=== PATIENT | male | born 1985 | race African-American/Black ===

== ENCOUNTER 2016-09-15 20:54 | Inpatient (IN) ==
[2016-09-15] MEDS ORDERED: SODIUM CHLORIDE 0.9% 1,000 ML IV STA (22:45)
[2016-09-15] MEDS ORDERED: cefTRIAXone 1,000 MG in SODIUM CHLORIDE 0.9% 100 ML IV STA (22:45)
[2016-09-15] MEDS ORDERED: FLUCONAZOLE INJ 200 MG in PREMIX 1 EACH IV ONE (22:45)
[2016-09-15] MEDS ORDERED: SODIUM CHLORIDE 0.9% 100 ML IV ONE (22:57)
[2016-09-15] MEDS ORDERED: cefTRIAXone 1,000 MG VIAL ONE (22:57)
[2016-09-15 23:25] LABS: Hematocrit 34.3 VOL% (42.0-52.0); Immature Granulocytes % 0.2 %; Immature Granulocytes Absolute 0.01 #; Lymphocytes # 0.6 10*3/uL (1.4-4.0); Lymphocytes % 12.5 % (21.2-54.2); Mean Corpuscular HGB Conc 32.1 GM/DL (32-36); Mean Corpuscular Hemoglobin 29 PG (27-34); Mean Corpuscular Volume 89.1 FL (87-102); Mean Platelet Volume 12.8 FL (9.6-12.0); Monocytes # 0.6 10*3/uL (0.11-0.8); Monocytes % 10.9 % (1.7-12.7); Neutrophils # 3.8 10*3/uL (1.4-7.4); Neutrophils % 76.4 % (38.7-73.9); Red Blood Count 3.85 MC/CUMM (3.8-5.5); Red Cell Distribution Width 13.4 % (9.3-17.3)
[2016-09-15 23:33] LABS: Platelet Count 52 T/CUMM (130-400)
[2016-09-15 23:43] LABS: Albumin 3.3 G/DL (3.4-5.0); Bilirubin,Total 0.6 MG/DL (0.2-1.0); Calcium 8.7 MG/DL (8.5-10.1); Osmolality,Calculated 280.1 MOS/KG (273-304); Potassium 3.4 MMOL/L (3.5-5.1); Total Protein 7.6 G/DL (6.4-8.3)
[2016-09-15 23:57] LABS: Amorphous Crystals,Urine Occasional /HPF (Few); Apearance,Urine CLEAR (Clear); Bilirubin,Urine Negative (Negative); Blood, Urine Negative (Negative); Glucose,Urine (UA) 50 mg/dL (Negative); Ketones,Urine Negative (Negative); Mucus,Urine Occasional /LPF (Occasional); Nitrite,Urine Negative (Negative); Protein,Urine 30 MG/DL; RBC,Urine <1 /HPF (0-4); Urine Color Yellow (Yellow); Urine Specific Gravity 1.018 (1.001-1.035); WBC,Urine 1 /HPF (0-6)
--- NOTE | 2016-09-16 00:26 | Emergency Department Note ---
Andi Stewart Brittany, am scribing for, and in the presence of, Dakota Gandhi MD 22:54. Oksana Stewart Charles R, MD, personally performed the services described in this documentation, ascribed by Gabriela Escamilla in my presence, and it is both accurate and complete . Arrival - Arrival Chief Complaint: Non-Specific Stated Complaint: THROAT PROBLEMS/ECT ED Nursing Triage Note: C/O SORE THROAT WITH ONSET 4 DAYS AGO. PT STATES HE HASNT BEEN ABLE TO EAT ANYTHING Mode of Arrival: Ambulatory Limitations: No Limitations Source: Patient Time Seen by Provider: 09/15/16 22:11 - History of Present Illness HPI Narrative: This is a 30 y/o black male, who presents to the ED with c/o sore throat which started 4 days ago. He states he has lost weight over "a while". He states he can feel a fever starting. He notes nausea, dysphagia and dysphonia. He denies any risky sexual behavior or any IV drug use. Pt has no other complaints/pain in the ED at this time. Pt denies a PMHx. Pt denies a surgical hx. Pt denies a family medical Hx. Pt denies a social Hx. Onset (ago): day(s) (Started 4 days ago) Consistency: constant Severity: moderate Allergies/Adverse Reactions: Allergies Allergy/AdvReac Type Severity Reaction Status Date / Time No Known Allergies Allergy Verified 08/23/14 14:52 Home Medications: Home Medications Medication Instructions Recorded Confirmed Type Phenazopyridine HCl [Pyridium] 200 mg PO TID PRN #20 tablet 04/12/16 Rx Sulfameth/Trimeth 800-160 Tab 1 tablet PO BID #20 tablet 04/12/16 Rx [Bactrim Ds Tab] Review of System - Review of System 12 point system: reviewed and no additional remarkable complaints except as stated - Review of System Constitutional: Present: fever, weight loss Head/Ears/Nose/Throat: Present: sore throat, other (Dysphonia and dysphagia) Gastrointestinal: Present: nausea Medical,Surgical,& Family Hx - Medical History Cardio: No history of: Hypertension Respiratory: No history of: Pulmonary Embolism - Surgical History Orthopedic Surgeries: Patient denies;: Total Knee Replacement - Social History Smoking Status: Current every day smoker Frequency of Alcohol Use: None Type of Drug Use: None Exam Vital Signs: Vital Signs Temperature 100.5 F H 09/15/16 21:46 Pulse Rate 114 H 09/15/16 21:46 Respiratory Rate 18 09/15/16 21:46 Blood Pressure 101/67 09/15/16 21:46 O2 Sat by Pulse Oximetry 98 09/15/16 21:11 - General General appearance: alert, in no apparent distress, cachectic (Emaciated) - Head Head exam: Present: atraumatic, normocephalic, normal inspection - Eye Eye exam: Present: normal appearance, PERRL, EOMI, other (Temporal wasting ). Absent: scleral icterus, conjunctival injection, nystagmus, miosis, mydriasis - ENT ENT exam: Present: normal oropharynx, mucous membranes moist, TM's normal bilaterally, normal external ear exam, other (Severe case of oral thrush, dysphonia, dysphagia, unable to view the ulvua. ) - Neck Neck exam: Present: trachea midline, other (Shotty lymphnodes). Absent: tenderness, meningismus, lymphadenopathy, thyromegaly - Chest Chest inspection: Present: normal inspection, symmetric chest wall rise. Absent : tenderness, rash, abscess - Respiratory Respiratory exam: Present: rhonchi (Bilateral Rhonci). Absent: rales, respiratory distress, stridor, wheezes - Cardiovascular Cardiovascular exam: Present: normal rhythm, tachycardia, normal heart sounds. Absent: murmur, rubs, gallop, clicks - Abdominal Exam Abdominal exam: Present: soft, normal bowel sounds. Absent: distention, tenderness, guarding, rebound, rigidity - Rectal Exam Rectal exam: Present: deferred - Extremities Exam Extremities exam: Present: normal inspection, full ROM, normal capillary refill. Absent: tenderness, pedal edema - Back Exam Back exam: Present: normal inspection, full ROM. Absent: tenderness, muscle spasm, rashes - Neurological Exam Neurological exam: Present: alert, oriented X3, CN II-XII intact. Absent: motor sensory deficit - Psychiatric Psychiatric exam: Present: normal affect, normal mood. Absent: depressed, agitated, anxious, flat affect - Skin Skin exam: Present: warm, dry, intact, normal color. Absent: rash, cyanosis, diaphoresis, erythema, pallor, mottled - Other Other exam information: Dystonia Course - Consultations Consultation #1: Hospitalist will admit patient Time: 00:24 Results - Labs CBC & BMP: 09/15/16 Unknown 09/15/16 23:03 Lab Results: I have reviewed the patients labs Labs: Laboratory Tests 09/15/16 Unknown WBC 5.0 RBC 3.85 Hgb 11.0 L Hct 34.3 L MCV 89.1 MCH 29 MCHC 32.1 RDW 13.4 Plt Count 52 L MPV 12.8 H Neut % (Auto) 76.4 H Lymph % (Auto) 12.5 L [place] % (Auto) 10.9 Eos % (Auto) 0.0 Baso % (Auto) 0.0 Neut # (Auto) 3.8 Lymph # (Auto) 0.6 L [place] # (Auto) 0.6 Eos # (Auto) 0.0 Baso # (Auto) 0.0 Total Counted Pending Immature Gran % 0.2 Nucleated RBC % 0.0 Immature Gran # 0.01 Nucleated RBCs # 0.00 ESR Westergren Pending Microbiology 09/15/16 23:03 Throat Group A Streptococcus Rapid Screen - Final Negative for Grp A Strep Ag Critical Care Time Critical Care Time: Yes Total Critical Care Time: 60 Disposition Clinical Impression: Thrush of mouth and esophagus, Thrombocytopenia, Suspect immune deficiency, Fever, Dysphagia, Weight loss Case discussed with: patient Disposition: Still a Patient Condition: Guarded Time of Disposition: 00:25
[2016-09-16 00:37] LABS: Sedimentation Rate-Westergren 79 MM/HR (0-15)
[2016-09-16] MEDS ORDERED: ONDANSETRON 4 MG/2 ML VIAL IV PRN (00:48)
[2016-09-16 00:57] LABS: Eosinophils 1 % (0-10); Lymphocytes 17 % (20-55); Segmented Neutrophils 73 % (50-85)
[2016-09-16 00:58] LABS: Elliptocytes 1+; Helmet Cells Few; Platelet Estimate Decreased
[2016-09-16 00:59] LABS: Total Cells Counted 100
--- NOTE | 2016-09-16 01:01 | Hospitalist History & Physical ---
Assessment and Plan (1) Oropharyngeal candidiasis Status: Acute Current Visit: Yes (2) Thrombocytopenia Status: Acute Current Visit: Yes (3) Fever Status: Acute Current Visit: Yes (4) Dysphagia Status: Acute Current Visit: Yes (5) Weight loss Status: Acute Assessment and plan: Our plan for this patient will be admitting him to our service. Going to put him on IV fluids supplemented with potassium and repeat his chemistry in the morning. Also his HIV test should come back at that time. If he is HIV positive I would want Dr. Bowden to see him. He might need his thrombocytopenia evaluated by Heme onc. Will continue with IV Diflucan and hopefully he will get symptomatic relief and then can be switched over to p.o.. Current Visit: Yes History of Present Illness Chief complaint: Pain with swallowing History of present illness: Mr. Sheth is a 30 year old male with no significant past medical history presents to our ER tonight. Patient reports pain with swallowing this been going on for almost a week. Patient has noticed some white plaques in his mouth over the past several days. Patient feels like he is having some kind of fever. Patient does report a weight loss and night sweats. I was consulted to admit him to the ER. Home Medications Medication Instructions Recorded Confirmed Type Phenazopyridine HCl [Pyridium] 200 mg PO TID PRN #20 tablet 04/12/16 Rx Sulfameth/Trimeth 800-160 Tab 1 tablet PO BID #20 tablet 04/12/16 Rx [Bactrim Ds Tab] Allergies Allergy/AdvReac Type Severity Reaction Status Date / Time No Known Allergies Allergy Verified 08/23/14 14:52 Medical,Surgical,& Family Hx - Medical History Medical History: noncontributory (Denies) Cardio: No history of: Hypertension Respiratory: No history of: Pulmonary Embolism - Surgical History Abdominal Surgeries: Surgical HX of: Hernia Repair Orthopedic Surgeries: Patient denies;: Total Knee Replacement - Family History Family History: Reports;: Family Cancer, Family Diabetes, Family Hypertension - Social History Smoking Status: Current every day smoker Frequency of Alcohol Use: None Type of Drug Use: None 12 point system: reviewed and no additional remarkable complaints except as stated Exam - Constitutional Vitals: Period Temp Pulse Resp BP Sys/Faustin Pulse Ox Last 24 Hr 100.5 F-100.5 F 114-114 18-18 101-101/67-67 98 - General General appearance: alert, in no apparent distress, cachectic - Head Head exam: Present: atraumatic, normocephalic, normal inspection - Eye Eye exam: Present: normal appearance, PERRL, EOMI, other (Temporal wasting ) - ENT ENT exam: Present: Patient has a severe case of oral thrush. - Neck Neck exam: Present: trachea midline - Chest Chest inspection: Present: normal inspection, symmetric chest wall rise. Absent : tenderness, rash, abscess - Respiratory Respiratory exam: Present: Grossly clear - Cardiovascular Cardiovascular exam: Present: normal rhythm, tachycardia, normal heart sounds - Abdominal Exam Abdominal exam: Present: soft, normal bowel sounds. Absent: distention, tenderness, guarding, rebound, rigidity - Extremities Exam Extremities exam: Present: normal inspection, full ROM, normal capillary refill - Back Exam Back exam: Present: normal inspection, full ROM - Neurological Exam Neurological exam: Present: alert, oriented X3, CN II-XII intact - Psychiatric Psychiatric exam: Present: normal affect, normal mood - Skin Skin exam: Present: warm, dry, intact, normal color. Results - Labs CBC & BMP: 09/15/16 Unknown 09/15/16 23:03 Quality Measures - VTE Contraindication to Pharmacological VTE Prophylaxis: Thrombocytopenia
[2016-09-16] MEDS: SODIUM CHLOR 0.45% KCL 20 MEQ 20 MEQ/1,000 ML BAG IV SCH ×2 (02:21→12:35)
[2016-09-16 06:20] LABS: Hematocrit 31.1 VOL% (42.0-52.0); Hemoglobin 10.2 GM/DL (14.0-18.0); Immature Granulocytes % 0.3 %; Immature Granulocytes Absolute 0.01 #; Lymphocytes # 0.6 10*3/uL (1.4-4.0); Mean Corpuscular HGB Conc 32.8 GM/DL (32-36); Mean Corpuscular Hemoglobin 29 PG (27-34); Mean Corpuscular Volume 88.1 FL (87-102); Monocytes # 0.4 10*3/uL (0.11-0.8); Monocytes % 12.1 % (1.7-12.7); Neutrophils # 2.3 10*3/uL (1.4-7.4); Neutrophils % 69.6 % (38.7-73.9); Platelet Count 50 T/CUMM (130-400); Red Blood Count 3.53 MC/CUMM (3.8-5.5); Red Cell Distribution Width 13.4 % (9.3-17.3); White Blood Count 3.2 T/CUMM (4-12)
[2016-09-16 06:46] LABS: Calcium 7.6 MG/DL (8.5-10.1); Giant Platelets Few; Hypochromasia 1+; Osmolality,Calculated 282.8 MOS/KG (273-304); Ovalocytes Slight; Platelet Estimate Decreased; Potassium 3.1 MMOL/L (3.5-5.1)
--- NOTE | 2016-09-16 07:46 | XRay Report ---
Exam: XR chest 2V Indication: Fever Shortness of breath Comparison study: Prior chest radiograph 09/28/2008 Findings: The heart, mediastinum and bony structures are stable from prior. Minimal perihilar interstitial opacities and minimal peribronchial thickening is noted and similar to prior. Faint right basilar opacities are also suggested. There is no pneumothorax or pleural effusion identified. Impression: Faint right basilar airspace opacities may represent early pneumonia. Central perihilar interstitial opacities and peribronchial thickening may represent changes of bronchitis or other viral/atypical infectious/inflammatory process. PROCEDURE INTERPRETED AT [facility] DEPARTMENT OF RADIOLOGY Final Report Signed by: Vincent Jenkins
[2016-09-16] MEDS: PANTOPRAZOLE 40 MG TABLET PO SCH (09:20)
--- NOTE | 2016-09-16 12:13 | Infectious Disease Consult ---
Assessment and Plan (1) HIV disease Status: Acute Assessment and plan: Diagnosis, likely with advanced immune suppression given the presence of severe oral candidiasis. Recommendations: 1. Send off baseline labs including HIV viral load and CD4 count. We will also do hepatitis serology given increased AST. 2. Start PCP prophylaxis with Bactrim double strength 1 tablet daily 3. Patient informed of the diagnosis, prognosis, and treatment options etc. Informed that he would have to obtain care at a [facility]. Understandingly he was surprised and emotional about the diagnosis. Did not have any questions today. Encouraged him to have a family member be present tomorrow so that it could be discussed further and any questions can be answered. Thank you very much for the consult. Will follow. Current Visit: Yes (2) Candidiasis of mouth and esophagus Status: Acute Assessment and plan: He has severe oral candidiasis and likely this extends to the esophagus given the presence of dysphasia. Recommendations: Agree with fluconazole initially IV but once he can swallow can switch to oral, 200 mg daily. Given suspected esophageal candidiasis he will need 21 days of therapy. Current Visit: Yes (3) Fever Status: Acute Assessment and plan: Low-grade fever, could be directly related to the HIV. We will follow-up blood cultures which are pending. I would hold off on giving broad-spectrum antibiotics in the absence of any obvious bacterial infection. Current Visit: Yes (4) Weight loss Status: Acute Assessment and plan: Most likely due to HIV disease. Current Visit: Yes (5) Pancytopenia Status: Acute Assessment and plan: Most likely due to HIV disease. Should improve with antiretroviral therapy. Current Visit: Yes History of Present Illness Chief complaint: HIV newly diagnosed History of present illness: Mr. Sheth is a 30 year old male with no known chronic medical illnesses presented with dysphagia worsening over the past 1 week. He has been losing weight for the past 2 months about 30 pounds total, and also experiencing night sweats and generalized weakness/malaise. No actual fever. Because he had difficulty eating his food he decided to come to the hospital. HIV test was done and preliminarily it is coming back positive. Patient said he last tested for HIV several years ago. Risk factor is that he is bisexual. I am asked to assist with management. Patient was not aware of his status before I went to see him. Home Medications Medication Instructions Recorded Confirmed Type Phenazopyridine HCl [Pyridium] 200 mg PO TID PRN #20 tablet 04/12/16 Rx Sulfameth/Trimeth 800-160 Tab 1 tablet PO BID #20 tablet 04/12/16 Rx [Bactrim Ds Tab] Allergies Allergy/AdvReac Type Severity Reaction Status Date / Time No Known Allergies Allergy Verified 08/23/14 14:52 12 point system: reviewed and no additional remarkable complaints except as stated (Per HPI) Medical,Surgical,& Family Hx - Medical History Cardio: No history of: Hypertension Respiratory: No history of: Pulmonary Embolism Musculoskeletal: No history of: Amputation - Surgical History Cardiac Surgeries: Patient Denies: Cardiac Catheterization Thoracic Surgeries: Patient denies;: Kidney (Renal Surgery), Lithotripsy, Nephrectomy, Organ Transplant, Lobectomy Neurologic Surgeries: Patient denies: Neurologic Surgery HEENT Surgeries: Patient denies: Eye Surgery, Thyroid Surgery, Tonsilectomy & Adenoidectomy Abdominal Surgeries: Surgical HX of: Hernia Repair Patient denies: Abdominal Surgery, Appendectomy, Cholecystectomy, Colonoscopy , Gastric Bypass Surgery, EGD Reproductive Surgeries: Patient denies;: Cystoscopy, Genitourinary Surgery, Prostate Surgery, Vasectomy Orthopedic Surgeries: Patient denies;: Implanted Devices, Orthopedic Surgery, Spinal Surgery, Total Hip Replacement, Total Knee Replacement - Family History Family History: Reports;: Family Cancer, Family Diabetes, Family Hypertension - Social History Smoking Status: Current every day smoker Frequency of Alcohol Use: None Type of Drug Use: None Infectious Disease Exam H&P - Constitutional Vitals: Vital Signs Temp Pulse Resp BP Pulse Ox 98.1 F 89 18 131/89 100 09/16/16 12:00 09/16/16 12:00 09/16/16 12:00 09/16/16 12:00 09/16/16 12:00 Intake and Output 09/15/16 09/16/16 09/16/16 23:59 07:59 15:59 Intake Total 100 / 100 Balance 100 / 100 Intake: Oral 100 / 100 Other: Voiding Method Toilet # Voids 1 Weight 63.503 kg 53.751 kg Patient Weight 09/16/16 23:59 Weight 53.751 kg Exam: General: Patient relatively comfortable, thin but not cachectic HEENT: Mucous membranes pink and moist, anicteric acyanotic, TANYA, extensive white exudates over tongue hard and soft palate and buccal mucosa Neck: Supple, no thyroid gland enlargement Respiratory system: Breath sounds vesicular, no crepitations or wheezes Cardiovascular: Normal S1 and S2, no murmurs appreciated Abdomen: Normal bowel sounds, soft nontender throughout, no organomegaly or mass Genitourinary: No suprapubic pain or bladder distention Extremities: no edema Skin: No rash Reports - Labs CBC & BMP: 09/16/16 05:29 09/16/16 05:29 Labs: Laboratory Results - last 24 hr 09/15/16 09/15/16 09/15/16 23:03 23:03 23:03 WBC RBC Hgb Hct MCV MCH MCHC RDW Plt Count MPV Neut % (Auto) Lymph % (Auto) [place] % (Auto) Eos % (Auto) Baso % (Auto) Neut # (Auto) Lymph # (Auto) [place] # (Auto) Eos # (Auto) Baso # (Auto) Total Counted Immature Gran % Nucleated RBC % Immature Gran # Segmented Neutrophils Lymphocytes Monocytes Eosinophils Nucleated RBCs # Platelet Estimate Giant Platelets Hypochromasia Ovalocytes Helmet Cells Elliptocytes Morphology Comment ESR Westergren Sodium 142 Potassium 3.4 L Chloride 107 Carbon Dioxide 28 Anion Gap 10.4 BUN 10 Creatinine 0.80 GFR Calculation 131 BUN/Creatinine Ratio 12.00 Glucose 82 Calculated Osmolality 280.1 Calcium 8.7 Total Bilirubin 0.60 AST 40 H ALT 24 Alkaline Phosphatase 106 Lactate Dehydrogenase 306 H C-Reactive Protein 0.85 H Total Protein 7.6 Albumin 3.3 L Globulin 4.3 H Albumin/Globulin Ratio 0.7 L Amylase 154 H Lipase 142.0 Urine Color Yellow Urine Appearance Clear Urine pH 6.0 Ur Specific [place] 1.018 Urine Protein 30 Urine Glucose (UA) 50 Urine Ketones Negative Urine Blood Negative Urine Nitrate Negative Urine Bilirubin Negative Urine Urobilinogen 4.0 H Urine Leukocytes Negative Urine RBC <1 Urine WBC 1 Amorphous Crystals Occasional Urine Mucus Occasional Ur Culture Indicated? Not indicated HIV 1&2 Antigen & Ab 09/15/16 09/16/16 09/16/16 Unknown 05:29 05:29 WBC 5.0 3.2 L D RBC 3.85 3.53 L Hgb 11.0 L 10.2 L Hct 34.3 L 31.1 L MCV 89.1 88.1 MCH 29 29 MCHC 32.1 32.8 RDW 13.4 13.4 Plt Count 52 L 50 L MPV 12.8 H Neut % (Auto) 76.4 H 69.6 Lymph % (Auto) 12.5 L 18.0 L [place] % (Auto) 10.9 12.1 Eos % (Auto) 0.0 0.0 Baso % (Auto) 0.0 0.0 Neut # (Auto) 3.8 2.3 Lymph # (Auto) 0.6 L 0.6 L [place] # (Auto) 0.6 0.4 Eos # (Auto) 0.0 0.0 Baso # (Auto) 0.0 0.0 Total Counted 100 Immature Gran % 0.2 0.3 Nucleated RBC % 0.0 0.0 Immature Gran # 0.01 0.01 Segmented Neutrophils 73 Lymphocytes 17 L Monocytes 9 Eosinophils 1 Nucleated RBCs # 0.00 0.00 Platelet Estimate Decreased Decreased Giant Platelets Few Hypochromasia 1+ Ovalocytes Slight Helmet Cells Few Elliptocytes 1+ Morphology Comment ESR Westergren 79 H Sodium 144 Potassium 3.1 L Chloride 109 H Carbon Dioxide 28 Anion Gap 10.1 BUN 7 Creatinine 0.70 GFR Calculation 129 BUN/Creatinine Ratio 10.00 Glucose 78 Calculated Osmolality 282.8 Calcium 7.6 L Total Bilirubin AST ALT Alkaline Phosphatase Lactate Dehydrogenase C-Reactive Protein Total Protein Albumin Globulin Albumin/Globulin Ratio Amylase Lipase Urine Color Urine Appearance Urine pH Ur Specific [place] Urine Protein Urine Glucose (UA) Urine Ketones Urine Blood Urine Nitrate Urine Bilirubin Urine Urobilinogen Urine Leukocytes Urine RBC Urine WBC Amorphous Crystals Urine Mucus Ur Culture Indicated? HIV 1&2 Antigen & Ab - Reports Microbiology: Microbiology 09/15/16 23:03 Quick Strep Confirmation Culture - Preliminary Throat No Group A Streptococcus isolated. Group A Streptococcus Rapid Screen - Final Negative for Grp A Strep Ag 09/15/16 23:03 Influenza Types A,B Antigen (AB) - Final Nasal Aspirate Negative for Influenza A Ag Negative for Influenza B Ag - Diagnostic Findings Procedure: Chest x-ray: image reviewed by me, report reviewed by me (No consolidation or effusion, mild increased interstitial markings)
[2016-09-16] MEDS: SULFAMETHOX/TRIMETHOPRIM 800-160 MG TABLET PO SCH (12:35)
[2016-09-16 19:24] LABS: Hepatitis B Core Ab Result Negative (Negative); Hepatitis B Surface Ab Result Negative; Hepatitis B Surface Ag Quant < 0.10 Index; Hepatitis B Surface Ag Result Negative (Negative); Hepatitis C Virus Ab Quant 0.13 Index; Hepatitis C Virus Ab Result Negative (Negative)
--- NOTE | 2016-09-16 19:33 | Hospitalist Progress Note ---
Assessment and Plan (1) Oropharyngeal candidiasis Status: Acute Assessment and plan: He is on Diflucan continue Current Visit: Yes (2) HIV disease Status: Acute Assessment and plan: This is a new diagnosis. Appreciate ID following. HIV viral load and CD4 counts are pending continue Bactrim for PCP prophylaxis Current Visit: Yes (3) Pancytopenia Status: Acute Assessment and plan: Likely from HIV, expected to improve with HAART Current Visit: Yes Hospitalist: Subjective Interval history: 10 year old male with no known chronic medical illnesses presented with dysphagia worsening over the past 1 week. He has been losing weight for the past 2 months about 30 pounds total, and also experiencing night sweats and generalized weakness/malaise. No actual fever. Because he had difficulty eating his food he decided to come to the hospital. HIV test was done and preliminarily it is coming back positive. Patient said he last tested for HIV several years ago. Risk factor is that he is bisexual. Exam - Constitutional Vitals: Period Temp Pulse Resp BP Sys/Faustin Pulse Ox Last 24 Hr 97.4 F-100.5 F 87-114 18-24 101-136/67-93 98-100 General appearance: no acute distress - Eye Eye exam: Present: EOMI Pupils: Present: TANYA - ENT ENT exam: Present: normal exam - Neck Neck exam: Present: normal inspection - Respiratory Respiratory exam: Present: clear to auscultation bilaterally - Cardiovascular Cardiovascular exam: Present: regular rate and rhythm - GI/Abdominal GI/Abdominal exam: Present: normal bowel sounds - Extremities Exam Extremities exam: Present: normal inspection - Neurological Exam Neurological exam: Present: alert, oriented X3 - Skin Skin exam: Present: normal color, warm, dry Results - Labs CBC & BMP: 09/16/16 05:29 09/16/16 05:29 Quality Measures - VTE Contraindication to Pharmacological VTE Prophylaxis: Thrombocytopenia
[2016-09-16] MEDS ORDERED: FLUCONAZOLE INJ 200 MG in PREMIX 1 EACH IV SCH (21:00)
[2016-09-17] MEDS: SODIUM CHLOR 0.45% KCL 20 MEQ 20 MEQ/1,000 ML BAG IV SCH ×3 (00:13→20:50)
[2016-09-17] MEDS: AMPHOTERICIN B IV SCH ×2 (00:17→20:46)
[2016-09-17] MEDS: DEXTROSE 5% IV SCH ×2 (00:17→20:46)
[2016-09-17] MEDS: ACETAMINOPHEN 325 MG TABLET PO PRN (01:50)
[2016-09-17 07:54] LABS: INR 1.1; PT Patient Result 11.3 SECS
[2016-09-17] MEDS: SULFAMETHOX/TRIMETHOPRIM 800-160 MG TABLET PO SCH (08:47)
[2016-09-17] MEDS: PANTOPRAZOLE 40 MG TABLET PO SCH (08:47)
[2016-09-17] MEDS ORDERED: MAGNESIUM SULF INJ 4 GM, POTASSIUM CHLORIDE INJ 50 MEQ in SODIUM CHLORIDE 0.9% 500 ML IV ONE (11:00)
--- NOTE | 2016-09-17 14:50 | Infectious Disease Progress ---
Assessment and Plan (1) HIV disease Status: Acute Assessment and plan: Diagnosis, likely with advanced immune suppression given the presence of severe oral candidiasis. Recommendations: 1. Foll current 2. Continue PCP prophylaxis with Bactrim double strength 1 tablet daily 3. Because he has cryptococcus email he likely has a CD4 count of less than 50 so I am going to add MAC prophylaxis with azithromycin 1200 mg weekly Discussed with family present at bedside the patient's diagnosis, treatment and positive outlook in general. His brother had several questions and they were answered. Current Visit: Yes (2) Candidiasis of mouth and esophagus Status: Acute Assessment and plan: Almost resolved with fluconazole therapy. Given quick response he may not have esophageal candidiasis may be just oropharyngeal. Recommendations: Switch fluconazole to oral and continue for a bit longer. 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 Monitor temperature curve on amphotericin B and follow-up pending blood cultures. Current Visit: Yes (4) Weight loss Status: Acute Assessment and plan: Most likely due to HIV disease. Current Visit: Yes (5) Pancytopenia Status: Acute Assessment and plan: Most likely due to HIV disease. Should improve with antiretroviral therapy. Current Visit: Yes (6) Disseminated cryptococcosis Status: Acute Assessment and plan: We need to make sure the patient does not have associated cryptococcal meningitis. Recommendations: I will be ordered. Radiologist's reluctant to date as his platelet count is only about 50. Hospitalist to arrange for platelet transfusion prior to LP procedure. CSF studies ordered including cell count and CSF cryptococcal antigen. Patient will continue with amphotericin B. Final treatment will be determined based on the CSF results. Current Visit: Yes Infectious Disease - PN: Subj Interval history: Patient doing okay today in better spirits, smiling. Family was around and he informed them of his new HIV diagnosis - his brother sister and niece. fever to 101.9 last night. Got some chills and rigors with the amphotericin but doing better after it got to infuse. Infectious Disease Exam (PN) - Constitutional Vitals: Temp Pulse Resp BP Pulse Ox 98.2 F 90 18 103/58 99 09/17/16 11:53 09/17/16 11:53 09/17/16 11:53 09/17/16 12:51 09/17/16 11:53 General appearance: no acute distress Exam: General appearance: no acute distress - Eye Eye exam: Present: EOMI. no icterus Pupils: Present: TANYA - ENT ENT exam: Resolved white exudates in mouth since yesterday - Neck Neck exam: supple - Respiratory Respiratory exam: vesicular BS, no crepitations or wheezes - Cardiovascular Cardiovascular exam: regular rate and rhythm, no murmurs - GI/Abdominal GI/Abdominal exam: normal bowel sounds, soft, non-tender, no organomegaly or mass - Extremities Exam Extremities exam: no edema - Skin Skin exam: no rash Results - Labs CBC & BMP: 09/16/16 05:29 09/16/16 05:29 Lab Results: I have reviewed the past 24 hour labs (Hepatitis serologies negative) Quality Measures - VTE Contraindication to Pharmacological VTE Prophylaxis: Thrombocytopenia
[2016-09-17] MEDS ORDERED: AZITHROMYCIN 250 MG TABLET PO ONE (15:00)
--- NOTE | 2016-09-17 19:46 | Hospitalist Progress Note ---
Assessment and Plan (1) Oropharyngeal candidiasis Status: Acute Assessment and plan: He is on Diflucan continue Current Visit: Yes (2) HIV disease Status: Acute Assessment and plan: This is a new diagnosis. Appreciate ID following. HIV viral load and CD4 counts are pending continue Bactrim for PCP prophylaxis Current Visit: Yes (3) Pancytopenia Status: Acute Assessment and plan: Likely from HIV, expected to improve with HAART Current Visit: Yes Hospitalist: Subjective Interval history: 30 year old male with no known chronic medical illnesses presented with dysphagia worsening over the past 1 week. He has been losing weight for the past 2 months about 30 pounds total, and also experiencing night sweats and generalized weakness/malaise. No actual fever. Because he had difficulty eating his food he decided to come to the hospital. HIV test was done and preliminarily it is coming back positive. Patient said he last tested for HIV several years ago. Risk factor is that he is bisexual. No acute complaints today. Exam - Constitutional Vitals: Period Temp Pulse Resp BP Sys/Faustin Pulse Ox Last 24 Hr 97 F-101.9 F 72-95 18-22 90-138/33-67 95-99 Exam: General: [No Acute Distress] HEENT: [Normocephalic, atraumatic, Extra ocular movements intact] Neck: [Supple, No JVD] Chest: [Clear to auscultation B/L] CV: [S1 + S2 audible without murmur, gallop or rub] Abd: [soft, NT, Non-distended, BS +] Ext: [No edema] Skin: [No purpura, bruising or rash] Rheumatologic: [No Joint deformities] Neurologic: [Strengtg 5/5 all extremities, no gross sensory deficits] Results - Labs CBC & BMP: 09/16/16 05:29 09/16/16 05:29 - Impressions Assessment and Plan (1) Oropharyngeal candidiasis Status: Acute, but improving with fluconazole Assessment and plan: He is on Diflucan continue Current Visit: Yes (2) HIV disease Status: Acute Assessment and plan: This is a new diagnosis. Appreciate ID following. HIV viral load and CD4 counts are pending continue Bactrim for PCP prophylaxis Current Visit: Yes (3) Pancytopenia Status: Acute Assessment and plan: Likely from HIV, expected to improve with HAART Current Visit: Yes (4) Continue PCP and MAC prophylaxis 6) Disseminated cryptococcosis Status: Acute Assessment and plan: Will get an LP to make sure the patient does not have associated cryptococcal meningitis. Since his platelet count is less than 50,000 the radiologist has recommended platelet count of 100,000 before they could do a lumbar puncture. We will transfuse platelets and repeat a CBC in the morning Quality Measures - VTE Contraindication to Pharmacological VTE Prophylaxis: Thrombocytopenia
[2016-09-17] MEDS: MAGNESIUM OXIDE 400 MG TABLET PO SCH (20:44)
[2016-09-18] MEDS: ACETAMINOPHEN 325 MG TABLET PO PRN (01:05)
[2016-09-18 05:30] LABS: Hematocrit 29.1 VOL% (42.0-52.0); Hemoglobin 9.6 GM/DL (14.0-18.0); Immature Granulocytes % 0.4 %; Immature Granulocytes Absolute 0.01 #; Lymphocytes # 0.8 10*3/uL (1.4-4.0); Mean Corpuscular Hemoglobin 28 PG (27-34); Mean Corpuscular Volume 85.8 FL (87-102); Mean Platelet Volume 12.4 FL (9.6-12.0); Monocytes # 0.4 10*3/uL (0.11-0.8); Monocytes % 15.2 % (1.7-12.7); Neutrophils # 1.6 10*3/uL (1.4-7.4); Neutrophils % 56.4 % (38.7-73.9); Red Blood Count 3.39 MC/CUMM (3.8-5.5); Red Cell Distribution Width 13.6 % (9.3-17.3); White Blood Count 2.8 T/CUMM (4-12)
[2016-09-18 05:35] LABS: Platelet Count 76 T/CUMM (130-400)
[2016-09-18 06:03] LABS: Calcium 7.3 MG/DL (8.5-10.1); Magnesium 2.6 MG/DL (1.8-2.4); Osmolality,Calculated 278.3 MOS/KG (273-304); Potassium 3.8 MMOL/L (3.5-5.1)
[2016-09-18 06:10] LABS: Band Neutrophils 1 % (0-10); Hypochromasia 1+; Lymphocytes 23 % (20-55); Nucleated Red Blood Cells 1 (0-5); Ovalocytes Slight; Platelet Estimate Decreased; Segmented Neutrophils 60 % (50-85); Total Cells Counted 100
[2016-09-18] MEDS: SULFAMETHOX/TRIMETHOPRIM 800-160 MG TABLET PO SCH (09:22)
[2016-09-18] MEDS: MAGNESIUM OXIDE 400 MG TABLET PO SCH ×2 (09:22→20:50)
[2016-09-18] MEDS: PANTOPRAZOLE 40 MG TABLET PO SCH (09:23)
[2016-09-18] MEDS: SODIUM CHLOR 0.45% KCL 20 MEQ 20 MEQ/1,000 ML BAG IV SCH ×2 (09:26→17:10)
--- NOTE | 2016-09-18 11:57 | Infectious Disease Progress ---
Assessment and Plan (1) HIV disease Status: Acute Assessment and plan: Diagnosis, likely with advanced immune suppression given the presence of severe oral candidiasis and positive serum cryptococcal antigen. Recommendations: 1. family support worker to start making referral to [facility] in [place] 2. 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 Monitor temperature curve on amphotericin B and follow-up pending blood cultures. Current Visit: Yes (4) Weight loss Status: Acute Assessment and plan: Most likely due to HIV disease. Current Visit: Yes (5) Pancytopenia Status: Acute Assessment and plan: Most likely due to HIV disease. Should improve with antiretroviral therapy. Current Visit: Yes (6) Disseminated cryptococcosis Status: Acute Assessment and plan: We need to make sure the patient does not have associated cryptococcal meningitis. Recommendations: Patient will platelet transfusion and LP is pending for today. Current Visit: Yes Infectious Disease - PN: Subj Interval history: Patient doing well he is in good spirits. Tolerating the amphotericin without any adverse effects. Low-grade fevers overnight to 100.9. He is eating well no more dysphasia. Infectious Disease Exam (PN) - Constitutional Vitals: Temp Pulse Resp BP Pulse Ox 98.5 F 71 18 109/69 96 09/18/16 11:50 09/18/16 11:50 09/18/16 11:50 09/18/16 11:50 09/18/16 07:48 General appearance: no acute distress Exam: General appearance: no acute distress - Eye Eye exam: Present: EOMI. no icterus Pupils: Present: TANYA - ENT ENT exam: Normal oral exudate - Neck Neck exam: supple - Respiratory Respiratory exam: vesicular BS, no crepitations or wheezes - Cardiovascular Cardiovascular exam: regular rate and rhythm, no murmurs - GI/Abdominal GI/Abdominal exam: normal bowel sounds, soft, non-tender, no organomegaly or mass - Extremities Exam Extremities exam: no edema - Skin Skin exam: no rash Results - Labs CBC & BMP: 09/18/16 05:02 09/18/16 05:02 Lab Results: I have reviewed the past 24 hour labs Quality Measures - VTE Contraindication to Pharmacological VTE Prophylaxis: Thrombocytopenia
--- NOTE | 2016-09-18 13:57 | Post Interventional Procedure ---
Pre-op diagnosis: HIV with disseminated cryptococcal disease Post-op diagnosis: same Procedure: Lumbar Puncture Contrast: none Flouroscopy: 0.8 min Radiologist: Vincent Jenkins Anesthesia: local Specimens: other (11 mL CSF sent (1st tube bloody)) Estimated blood loss: none Complications: none Condition: stable Description/Findings: L2-L3 was initially entered with clear flow CSF which after approximately 1-2 mL drainage, became blood tinged. Therefore, the needle was removed. Subsequently, the L3-L4 level was accessed with return of clear flow of CSF. At this location an additional 10 mL of CSF was removed without difficulty. Assessment and Plan - Time spent with patient Time spent with patient: Less than 30 minutes
--- NOTE | 2016-09-18 14:03 | Interventional Radiology Rpt ---
Procedure: IR lumbar puncture diagnostic Clinical history: 30-year-old male with untreated HIV and disseminated Cryptococcus. Procedure: Informed consent was obtained prior to procedure. Formal timeout was performed. Maximum sterile barrier technique was employed. The patient was placed prone on the fluoroscopy table. The low back was prepped and draped in a sterile fashion. Initially, a midline lumbar puncture was then performed at the L2-L3 interspace using a 20-gauge spinal needle. Fluoroscopic guidance was used and a captured image documents the needle position. An opening pressure of 10 cm water was obtained. After approximately 1-2 mL of clear CSF drainage, the CSF became blood-tinged. Therefore, the needle was removed and pressure was held to obtain hemostasis. Additionally, the L3-L4 interspace was accessed with a 20-gauge needle. Again, clear CSF was visualized to drain spontaneously. Subsequently, 10 milliliters of clear, colorless CSF was withdrawn and sent to laboratory. The spinal needle was removed and a bandage placed the puncture site. Fluoroscopy time: 0.8 minutes. Consultations: None. Impression: Technically successful diagnostic lumbar puncture as described. PROCEDURE INTERPRETED AT [facility] DEPARTMENT OF RADIOLOGY Final Report Signed by: Vincent Jenkins
[2016-09-18 14:45] LABS: Appearance,CSF Clear; Lymphocytes,CSF 100 %; Red Blood Cell,CSF 21 C/CUMM; White Blood Cell,CSF 4 C/CUMM
--- NOTE | 2016-09-18 20:28 | Hospitalist Progress Note ---
Assessment and Plan (1) Oropharyngeal candidiasis Status: Acute Assessment and plan: He is on Diflucan continue Current Visit: Yes (2) HIV disease Status: Acute Assessment and plan: This is a new diagnosis. Appreciate ID following. HIV viral load and CD4 counts are pending continue Bactrim for PCP prophylaxis Current Visit: Yes (3) Pancytopenia Status: Acute Assessment and plan: Likely from HIV, expected to improve with HAART Current Visit: Yes Hospitalist: Subjective Interval history: 30 year old male with no known chronic medical illnesses presented with dysphagia worsening over the past 1 week. He has been losing weight for the past 2 months about 30 pounds total, and also experiencing night sweats and generalized weakness/malaise. No actual fever. Because he had difficulty eating his food he decided to come to the hospital. HIV test was done and preliminarily it is coming back positive. Patient said he last tested for HIV several years ago. Risk factor is that he is bisexual. He went for lumbar puncture today Exam - Constitutional Vitals: Period Temp Pulse Resp BP Sys/Faustin Pulse Ox Last 24 Hr 97.4 F-100.9 F 70-102 18-20 97-141/57-82 95-99 Exam: General: [No Acute Distress] HEENT: [Normocephalic, atraumatic, Extra ocular movements intact] Neck: [Supple, No JVD] Chest: [Clear to auscultation B/L] CV: [S1 + S2 audible without murmur, gallop or rub] Abd: [soft, NT, Non-distended, BS +] Ext: [No edema] Skin: [No purpura, bruising or rash] Rheumatologic: [No Joint deformities] Neurologic: [Strengtg 5/5 all extremities, no gross sensory deficits] Results - Labs CBC & BMP: 09/18/16 15:03 09/18/16 05:02 - Impressions (1) Oropharyngeal candidiasis Status: Acute Assessment and plan: He is on Diflucan continue Current Visit: Yes (2) HIV disease/AIDS Status: Acute Assessment and plan: This is a new diagnosis. Appreciate ID following. HIV viral load and CD4 counts are pending continue Bactrim for PCP prophylaxis. Follow up on pending CSF results Current Visit: Yes (3) Pancytopenia Status: Acute Assessment and plan: Likely from HIV, expected to improve with HAART Current Visit: Yes Quality Measures - VTE Contraindication to Pharmacological VTE Prophylaxis: Thrombocytopenia
[2016-09-18] MEDS: AMPHOTERICIN B IV SCH (20:51)
[2016-09-18] MEDS: DEXTROSE 5% IV SCH (20:51)
[2016-09-19] MEDS: SODIUM CHLOR 0.45% KCL 20 MEQ 20 MEQ/1,000 ML BAG IV SCH ×3 (03:15→23:06)
[2016-09-19 04:54] LABS: HIV Antigen/Antibody Result Reactive (Nonreactive)
[2016-09-19 07:37] LABS: Calcium 7.6 MG/DL (8.5-10.1); Magnesium 2.1 MG/DL (1.8-2.4); Osmolality,Calculated 276.4 MOS/KG (273-304); Potassium 3.9 MMOL/L (3.5-5.1)
[2016-09-19] MEDS: PANTOPRAZOLE 40 MG TABLET PO SCH (09:20)
[2016-09-19] MEDS: SULFAMETHOX/TRIMETHOPRIM 800-160 MG TABLET PO SCH (09:20)
[2016-09-19] MEDS: MAGNESIUM OXIDE 400 MG TABLET PO SCH ×2 (09:20→20:38)
[2016-09-19 10:37] LABS: % CD4 (T Cells) 2 % (32-64); % CD8 (T Cells) 60 % (18-40); 4/8 Ratio 0 (>=0.9)
[2016-09-19] MEDS ORDERED: MEPERIDINE 50 MG/1 ML VIAL IV PRN (11:45)
--- NOTE | 2016-09-19 15:02 | Hospitalist Progress Note ---
Assessment and Plan (1) Candidiasis of mouth and esophagus Status: Acute Assessment and plan: Patient will continue to be on parenteral amphotericin Current Visit: Yes (2) Fever Status: Acute Assessment and plan: Continue to observe. So far patient is afebrile Current Visit: Yes (3) Weight loss Status: Acute Current Visit: Yes (4) Oropharyngeal candidiasis Status: Acute Assessment and plan: As above Current Visit: Yes (5) HIV disease Status: Acute Current Visit: Yes Hospitalist: Subjective Interval history: Patient has been seen interviewed and examined and chart has been reviewed. The gentleman admitted to the hospital with oral candidiasis found to be severe severely anemic has positive serum cryptococcal antigen positive HTLV-1 antibodies and a very high viral load. I am informed that he is being treated for histoplasmosis which I cannot find the posterior report on the chart yet. However there is cryptococcal serum antigen detected. Patient is on amphotericin B. He is reporting the right does with amphotericin B will therefore give him some oral Demerol 50 mg IV each time he gets the dose and developed his right this. Since his symptoms are happening all the time Demerol should be given before the dose of amphotericin Exam - Constitutional Vitals: Period Temp Pulse Resp BP Sys/Faustin Pulse Ox Last 24 Hr 97.2 F-100.2 F 70-83 20-20 108-132/60-85 96-100 General appearance: no acute distress - Head Head exam: Present: normocephalic, atraumatic - Eye Eye exam: Present: EOMI, other (Anicteric sclera no conjunctival petechia) Pupils: Present: TANYA - ENT ENT exam: Present: normal exam - Respiratory Respiratory exam: Present: clear to auscultation bilaterally - Cardiovascular Cardiovascular exam: Present: regular rate and rhythm - GI/Abdominal GI/Abdominal exam: Present: normal bowel sounds, soft - Extremities Exam Extremities exam: Present: full ROM - Neurological Exam Neurological exam: Present: alert, oriented X3, CN II-XII intact - Psychiatric Psychiatric exam: Present: normal affect, normal mood - Skin Skin exam: Present: normal color, warm, dry Results - Labs CBC & BMP: 09/18/16 15:03 09/19/16 06:53 Lab Results: I have reviewed the past 24 hour labs (As mentioned) Quality Measures - VTE Contraindication to Pharmacological VTE Prophylaxis: Thrombocytopenia
--- NOTE | 2016-09-19 16:02 | Infectious Disease Progress ---
Assessment and Plan (1) HIV disease Status: Acute Assessment and plan: HIV disease with profound immune suppression, CD4 count is only 8. Complicated by cryptococcal antigenemia. Recommendations: Continue PCP and MAC prophylaxis. Follow-up with an HIV [facility] clinic on discharge. Current Visit: Yes (2) Candidiasis of mouth and esophagus Status: Acute Assessment and plan: Resolved Current Visit: Yes (3) Fever Status: Acute Assessment and plan: Fever probably multifactorial including the chronic HIV disease f and cryptococcal antigenemia. Afebrile for 24 hours. Current Visit: Yes (4) Weight loss Status: Acute Assessment and plan: Most likely due to HIV disease. Current Visit: Yes (5) Pancytopenia Status: Acute Assessment and plan: Most likely due to HIV disease. Should improve with antiretroviral therapy. Current Visit: Yes (6) Disseminated cryptococcosis Status: Acute Assessment and plan: Cryptococcal antigenemia fortunately without associated cryptococcal meningitis. Recommendations: 1. Discontinue amphotericin 2. Start fluconazole 400 mg daily. Patient will need to be in this for at least one year, longer depending on the immune reconstitution. Current Visit: Yes Infectious Disease - PN: Subj Interval history: Doing okay, had lumbar puncture yesterday with normal opening pressure. No fever over the past 24 hours, T-max 100.2. Infectious Disease Exam (PN) - Constitutional Vitals: Temp Pulse Resp BP Pulse Ox 98.4 F 82 20 113/73 100 09/19/16 11:33 09/19/16 11:33 09/19/16 11:33 09/19/16 11:33 09/19/16 11:33 General appearance: no acute distress Exam: General appearance: no acute distress - Eye Eye exam: Present: EOMI. no icterus Pupils: Present: TANYA - ENT ENT exam: No oral exudate - Neck Neck exam: supple - Respiratory Respiratory exam: vesicular BS, no crepitations or wheezes - Cardiovascular Cardiovascular exam: regular rate and rhythm, no murmurs - GI/Abdominal GI/Abdominal exam: normal bowel sounds, soft, non-tender, no organomegaly or mass - Extremities Exam Extremities exam: no edema - Skin Skin exam: no rash Results - Labs CBC & BMP: 09/18/16 15:03 09/19/16 06:53 Lab Results: I have reviewed the past 24 hour labs (CD4 count 8, HIV viral load 405,000, CSF cryptococcal antigen negative) Quality Measures - VTE Contraindication to Pharmacological VTE Prophylaxis: Thrombocytopenia
[2016-09-19] MEDS: FLUCONAZOLE 200 MG TABLET PO SCH (17:05)
[2016-09-20] MEDS: SULFAMETHOX/TRIMETHOPRIM 800-160 MG TABLET PO SCH (09:43)
[2016-09-20] MEDS: FLUCONAZOLE 200 MG TABLET PO SCH (09:43)
[2016-09-20] MEDS: SODIUM CHLOR 0.45% KCL 20 MEQ 20 MEQ/1,000 ML BAG IV SCH (09:44)
[2016-09-20] MEDS: MAGNESIUM OXIDE 400 MG TABLET PO SCH (09:44)
[2016-09-20] MEDS: PANTOPRAZOLE 40 MG TABLET PO SCH (09:44)
--- NOTE | 2016-09-20 10:58 | Infectious Disease Progress ---
Assessment and Plan (1) HIV disease Status: Acute Assessment and plan: HIV disease with profound immune suppression, CD4 count is only 8. Complicated by cryptococcal antigenemia. Recommendations: Continue PCP and MAC prophylaxis. Follow-up with an HIV [facility] clinic within 1-2 weeks of discharge. Current Visit: Yes (2) Candidiasis of mouth and esophagus Status: Acute Assessment and plan: Resolved Current Visit: Yes (3) Fever Status: Acute Assessment and plan: Fever probably multifactorial including the chronic HIV disease and cryptococcal antigenemia. Afebrile for 48 hours. Current Visit: Yes (4) Weight loss Status: Acute Assessment and plan: Most likely due to HIV disease. Current Visit: Yes (5) Pancytopenia Status: Acute Assessment and plan: Most likely due to HIV disease. Should improve with antiretroviral therapy. Current Visit: Yes (6) Disseminated cryptococcosis Status: Acute Assessment and plan: Cryptococcal antigenemia fortunately without associated meningitis. Recommendations: Continue fluconazole 400 mg daily. Patient will need to be in this for at least one year, longer depending on the immune reconstitution. I am okay with the patient being discharged home today. I discussed with the patient his medical conditions on the importance of early follow-up with [facility] for definitive treatment. Current Visit: Yes Infectious Disease - PN: Subj Interval history: Patient doing while he is in very good spirits, looking for this breast the next week. He is now on fluconazole and tolerating it without any difficulties. He has not had any headache no fever for 48 hours. Eating well no vomiting no diarrhea. Infectious Disease Exam (PN) - Constitutional Vitals: Temp Pulse Resp BP Pulse Ox 98.0 F 81 20 117/83 98 09/20/16 07:58 09/20/16 07:58 09/20/16 07:58 09/20/16 07:58 09/20/16 07:58 General appearance: no acute distress Exam: General appearance: no acute distress, ambulating - Eye Eye exam: Present: EOMI. no icterus Pupils: Present: TANYA - ENT ENT exam: No oral exudate - Respiratory Respiratory exam: vesicular BS, no crepitations or wheezes - Cardiovascular Cardiovascular exam: regular rate and rhythm, no murmurs - GI/Abdominal GI/Abdominal exam: normal bowel sounds, soft, non-tender, no organomegaly or mass - Extremities Exam Extremities exam: no edema - Skin Skin exam: no rash Results - Labs CBC & BMP: 09/18/16 15:03 09/19/16 06:53 Lab Results: I have reviewed the past 24 hour labs Quality Measures - VTE Contraindication to Pharmacological VTE Prophylaxis: Thrombocytopenia
[2016-09-20 12:19] VITALS: BP 119/79
--- NOTE | 2016-09-20 13:23 | Discharge Summary ---
Diagnosis - Discharge Diagnosis (1) Candidiasis of mouth and esophagus Status: Acute (2) Fever Status: Acute (3) Weight loss Status: Acute (4) Oropharyngeal candidiasis Status: Acute (5) HIV disease Status: Acute Discharge Plan - Discharge Data Disposition: Disch To Home/Self Care Condition at Discharge: Stable Discharge Diet: advance to your usual diet Activity: resume usual activities as tolerated Hygiene: no restrictions Weight Bearing at Discharge: weight bear as tolerated Contact your physician if you experience:: fever over 101, Nausea/Vomiting, Shortness of breath - Discharge Medications New Fluconazole Tab [Diflucan Tab] 400 mg PO DAILY #60 tablet Magnesium Oxide 400 mg PO BID #60 tablet Pantoprazole Tab [Protonix Tab] 40 mg PO DAILY #30 tablet Azithromycin Tab [Zithromax Tab] 1,250 mg PO Tu@0900 #20 tablet Sulfameth/Trimeth 800-160 Tab [Bactrim DS Tab] 1 tablet PO DAILY #30 tablet Discontinued Phenazopyridine HCl [Pyridium] 200 mg PO TID PRN #20 tablet PRN Reason: dysuria Sulfameth/Trimeth 800-160 Tab [Bactrim Ds Tab] 1 tablet PO BID #20 tablet - Follow Up or Referral - Forms/Instructions Exam - Constitutional Vitals: Period Temp Pulse Resp BP Sys/Faustin Pulse Ox Last 24 Hr 97.6 F-98.2 F 66-81 18-22 113-147/66-83 94-100 General appearance: normal weight, no acute distress - Head Head exam: Present: normocephalic, atraumatic - Eye Eye exam: Present: EOMI Pupils: Present: TANYA - ENT ENT exam: Present: normal oropharynx - Neck Neck exam: Present: normal inspection - Respiratory Respiratory exam: Present: clear to auscultation bilaterally - Cardiovascular Cardiovascular exam: Present: regular rate and rhythm - GI/Abdominal GI/Abdominal exam: Present: normal bowel sounds, soft - Extremities Exam Extremities exam: Present: full ROM - Neurological Exam Neurological exam: Present: alert, oriented X3, CN II-XII intact - Psychiatric Psychiatric exam: Present: normal affect, normal mood - Skin Skin exam: Present: normal color, warm, dry Discharge Results Procedures and tests throughout hospitalization: Pending Orders 09/15/16 23:03 Blood Culture Stat Quick Strep Panel Stat Labs on day of discharge: Labs from last 24 hours 09/16/16 13:27 CSF VDRL Negative Preliminary micro results at discharge 09/15/16 23:03 Blood Culture - Preliminary Blood No growth at 3 days 09/15/16 23:03 Blood Culture - Preliminary Blood No growth at 3 days 09/15/16 23:03 Quick Strep Confirmation Culture - Preliminary Throat No Group A Streptococcus isolated. DS: Provider Date of admission: 09/16/16 00:45 Primary care physician: . No PCP Attending physician on admission: Josef Bhatti MD Consults: 09/16/16 02:29 Consult to Dietitian [CONS] Routine Reason for Dietitian: Dietary Consult 09/16/16 07:34 Consult to Physician [CONS] Routine Comment: Consulting Provider: Kadi Bowden 09/16/16 14:03 Consult to Pastoral Services [CONS] Routine Comment: Pastoral Screen: Declines Visit 09/17/16 10:10 Consult to Pharmacy [CONS] Routine Reason for Pharmacy Consult: Other Comment: Pt on amphotericin- replace electrolytes today 09/18/16 10:51 Consult to Case Mgmt/Social Srvs [CONS] Routine Reason for Case Mgmt/Social Srvs: Other Consult Comment: [facility] Discharging clinician: Finn Ng MD
--- NOTE | 2016-09-20 14:21 | Hospitalist Progress Note ---
Assessment and Plan (1) Candidiasis of mouth and esophagus Status: Acute Assessment and plan: Patient will continue to be on parenteral amphotericin Current Visit: Yes (2) Fever Status: Acute Assessment and plan: Continue to observe. So far patient is afebrile Current Visit: Yes (3) Weight loss Status: Acute Current Visit: Yes (4) Oropharyngeal candidiasis Status: Acute Assessment and plan: As above Current Visit: Yes (5) HIV disease Status: Acute Current Visit: Yes Exam - Constitutional Vitals: Period Temp Pulse Resp BP Sys/Faustin Pulse Ox Last 24 Hr 97.6 F-98.2 F 66-81 18-22 113-147/66-83 94-100 Results - Labs CBC & BMP: 09/18/16 15:03 09/19/16 06:53 Quality Measures - VTE Contraindication to Pharmacological VTE Prophylaxis: Thrombocytopenia
[2016-09-24] MEDS ORDERED: AZITHROMYCIN 250 MG TABLET PO SCH (09:00)
== END 2016-09-20 14:10 | disposition home or self-care (01) | DRG 975 ==
LOC: N.ED 20:54 → SUATTDRO 09-16 00:45 → N.EDINP 09-16 00:45 → N.2E 09-16 01:32
PROVIDERS: ADMIT Internal Medicine; ATTEND Internal Medicine Infectious Disease